=== PATIENT | male | born 1935 | race Caucasian/White ===

== ENCOUNTER → 2016-10-15 | Outpatient (CLI) | payer OTHER ==
[~2016-10-15] MED LIST: ASPIR LOW81 MG PO; BACLOFEN10 MG PO; DEXILANT60 M1 PO; HYDROCHLOROTH12.5 M2 PO; LAC PO; LOVASTATIN40 MG PO; LYRICA50 M1 PO; OXYBUTYNIN CHLOR5 MG PO
== END | disposition home or self-care (01) ==
LOC: RD 14:29
DX: R06.02 Shortness of breath (principal)

== ENCOUNTER 2016-11-21 06:09 | Day surgery (SDC) | payer OTHER ==
[~2016-11-21] VITALS: Ht 152.4 cm; Wt 104.3 kg
[2016-11-21 07:01] VITALS: BP 142/58
[2016-11-21 09:14] VITALS: BP 130/83
== END 2016-11-21 09:20 | disposition home or self-care (01) ==
LOC: DS 06:09 → GI 07:30 → OR 07:30 → DS 09:20
PROVIDERS: Internal Medicine
PROC: 0DJD8ZZ Inspection of Lower Intestinal Tract, Via Natural or Artificial Opening Endoscopic (ICD-10-PCS; principal; 2016-11-21 07:30)
DX: Z12.11 Encounter for screening for malignant neoplasm of colon (principal); K57.30 Diverticulosis of large intestine without perforation or abscess without bleeding; R15.9 Full incontinence of feces; J44.9 Chronic obstructive pulmonary disease, unspecified; E78.5 Hyperlipidemia, unspecified; E66.01 Morbid (severe) obesity due to excess calories; Z68.41 Body mass index [BMI] 40.0-44.9, adult
CPT/HCPCS: 45378; J1200; J1610; J2250; J2310; J3010; J3490

== ENCOUNTER → 2016-12-04 | Outpatient (CLI) | payer OTHER | END | disposition home or self-care (01) | LOC: RD 12:04 | DX: M79.672 Pain in left foot (principal) ==

== ENCOUNTER 2016-12-29 08:03 | Inpatient (IN) | payer OTHER ==
[~2016-12-29] VITALS: Ht 162.6 cm; Wt 101.2 kg
[2016-12-29 09:06] LABS: BASOPHIL % 0.6 % (0-2); RED CELL DISTRIBUTION WIDTH 13.5 % (11.5-14.5)
[2016-12-29 09:08] LABS: PLATELET COUNT 128 x10^3mcL (130-400)
[2016-12-29 09:18] LABS: CALCIUM 8.7 mg/dL (8.5-10.1); CARBON DIOXIDE 28.4 mmol/L (21-32); CHLORIDE SERUM 103 mmol/L (98-107); CREATININE SERUM 1.2 mg/dL (0.7-1.3); GLUCOSE SERUM 105 mg/dL (74-106); POTASSIUM SERUM 4.2 mmol/L (3.5-5.1); SODIUM SERUM 141 mmol/L (136-145)
[2016-12-29 09:31] LABS: ALBUMIN 3.4 g/dL (3.4-5.0); ALKALINE PHOSPHATASE 62 U/L (46-116); ALT/SGPT 30 U/L (16-63); AMYLASE 27 U/L (25-115); AST/SGOT 24 U/L (15-37); BILIRUBIN TOTAL 0.45 mg/dL (0.20-1.00); CHOLESTEROL 179 mg/dL (<200); LIPASE 49 IU/L (73-393); T4(THYROXINE) 7.7 ug/dL (4.7-13.3); TOTAL PROTEIN, SERUM 7.1 g/dL (6.4-8.2)
[2016-12-29 09:32] LABS: HDL CHOLESTEROL 73 mg/dL (40-60)
[2016-12-29] MEDS ORDERED: LASIX40 MG PO (10:04)
[2016-12-29] MEDS ORDERED: MECLIZINE HYDRO25 M1 PO (10:04)
[2016-12-29] MEDS ORDERED: KLOR-CON M2020 MEQ PO (10:04)
[2016-12-29] MEDS ORDERED: TAMSULOSIN HYD0.4 M1 PO (10:05)
[2016-12-29] MEDS ORDERED: ADVAIR INH (10:06)
[2016-12-29] MEDS ORDERED: [UNRECOGNIZED DRUG - REMARK] TOP (10:07)
[2016-12-29 12:56] VITALS: BP 131/72
[2016-12-29 13:46] LABS: microscopic required? NO
[2016-12-29 13:54] LABS: urine erythrocyte NEGATIVE (NEGATIVE)
[2016-12-29 14:02] LABS: AMPHETAMINE QUAL UR NONE DETECTED (NEG <=1000)
[2016-12-29 14:20] VITALS: BP 144/80
[2016-12-29 14:28] VITALS: BP 144/80
[2016-12-29 17:22] VITALS: BP 130/69
[2016-12-29 18:14] VITALS: BP 142/49
[2016-12-29 18:32] VITALS: Ht 162.6 cm; Wt 101.2 kg
[2016-12-29 20:21] VITALS: BP 134/68
[2016-12-30 06:13] VITALS: BP 130/71
[2016-12-30 06:22] LABS: PLATELET COUNT 139 x10^3mcL (130-400); RED CELL DISTRIBUTION WIDTH 13.6 % (11.5-14.5)
[2016-12-30 06:43] LABS: BASOPHIL % 0 % (0-2)
[2016-12-30 07:16] LABS: CALCIUM 8.7 mg/dL (8.5-10.1); CHLORIDE SERUM 103 mmol/L (98-107); CREATININE SERUM 1.2 mg/dL (0.7-1.3); GLUCOSE SERUM 163 mg/dL (74-106); POTASSIUM SERUM 4.3 mmol/L (3.5-5.1); SODIUM SERUM 137 mmol/L (136-145)
[2016-12-30 09:56] VITALS: BP 132/71
[2016-12-30 14:08] VITALS: BP 120/57
[2016-12-30 18:18] VITALS: BP 110/60
[2016-12-30 20:42] VITALS: BP 136/63
[2016-12-31 05:33] VITALS: BP 113/60
[2016-12-31 06:21] LABS: PLATELET COUNT 133 x10^3mcL (130-400); RED CELL DISTRIBUTION WIDTH 13.2 % (11.5-14.5)
[2016-12-31 06:26] LABS: CALCIUM 8.4 mg/dL (8.5-10.1); CARBON DIOXIDE 27.4 mmol/L (21-32); CHLORIDE SERUM 105 mmol/L (98-107); CREATININE SERUM 1.3 mg/dL (0.7-1.3); GLUCOSE SERUM 127 mg/dL (74-106); MAGNESIUM 2.1 mg/dL (1.8-2.4); PHOSPHOROUS 3.8 mg/dL (2.5-4.9); POTASSIUM SERUM 4.5 mmol/L (3.5-5.1); SODIUM SERUM 141 mmol/L (136-145)
[2016-12-31 07:10] LABS: BASOPHIL % 0 % (0-2)
[2016-12-31 10:14] VITALS: BP 117/57
[2016-12-31 13:24] VITALS: BP 109/53
[2016-12-31 14:45] VITALS: BP 109/53
[2016-12-31] MEDS ORDERED: LAC PO (14:57)
[2016-12-31] MEDS ORDERED: LEVAQUIN750 MG PO (14:57)
[2016-12-31] MEDS ORDERED: MEDDP PO (14:58)
[2016-12-31] MEDS ORDERED: IND25 PO (14:59)
[2016-12-31] MEDS ORDERED: ROBDML PO (14:59)
[2016-12-31] MEDS ORDERED: CLINDAMYCIN HC300 MG PO (15:00)
[2016-12-31 17:13] VITALS: BP 96/53
== END 2016-12-31 18:30 | disposition home or self-care (01) | DRG 193 ==
LOC: ED 08:03 → DU 10:40
PROVIDERS: Emergency Medicine; ADMIT Family Medicine
DX: R09.1 Pleurisy (principal); N17.0 Acute kidney failure with tubular necrosis; J44.1 Chronic obstructive pulmonary disease with (acute) exacerbation; D68.69 Other thrombophilia; E86.0 Dehydration; K21.9 Gastro-esophageal reflux disease without esophagitis; D69.6 Thrombocytopenia, unspecified; R73.03 Prediabetes; I73.9 Peripheral vascular disease, unspecified; I10 Essential (primary) hypertension; I25.10 Atherosclerotic heart disease of native coronary artery without angina pectoris; K42.9 Umbilical hernia without obstruction or gangrene; M10.9 Gout, unspecified; E78.5 Hyperlipidemia, unspecified; I25.2 Old myocardial infarction; E66.9 Obesity, unspecified; Z68.38 Body mass index [BMI] 38.0-38.9, adult; Z87.891 Personal history of nicotine dependence; Z85.46 Personal history of malignant neoplasm of prostate; Z92.3 Personal history of irradiation; Z66 Do not resuscitate
CPT/HCPCS: 36600; 82962; 83880; J1956; J2930; J3490; J7030; J7613; J7620; J7644; J8597; Q0092

== ENCOUNTER 2017-01-04 22:45 | Observation (INO) | payer OTHER ==
[~2017-01-04] VITALS: Ht 162.6 cm; Wt 103.2 kg
[~2017-01-04 22:45] MED LIST changes: +ADVAIR INH; +CLINDAMYCIN HC300 MG PO; +IND25 PO; +KLOR-CON M2020 MEQ PO; +LASIX40 MG PO; +LEVAQUIN750 MG PO; +MECLIZINE HYDRO25 M1 PO; +MEDDP PO; +ROBDML PO; +TAMSULOSIN HYD0.4 M1 PO; +[UNRECOGNIZED DRUG - REMARK] TOP
--- NOTE | 2017-01-04 22:53 | NUR ---
EKG IN PROGRESS
--- NOTE | 2017-01-04 23:00 | NUR ---
PATIENT SEEN WITH COMPLAINT OF SON , COUGH AND NAUSEA. DR ALBERTO AT THE BEDSIDE.PATIENT SEEN WITH GROSSLY DISTENDED ABDOMEN. FAMILY REPORTS PATIENT HAS A COUUGH AND BURNING ANDOMINAL PAIN WHEN COUGHING.
[2017-01-04 23:33] LABS: BASOPHIL % 0.4 % (0-2); PLATELET COUNT 175 x10^3mcL (130-400); RED CELL DISTRIBUTION WIDTH 13.1 % (11.5-14.5)
--- NOTE | 2017-01-04 23:34 | NUR ---
SALINE LOCK INSERTED. SALINE BOLUS STARTED. PATIENT MEDICATED WITH SOLUMEDROL AND ZOFRAN. PATIENT WENT TO HAVE CT SCAN ABDOMEN DONE.
[2017-01-04 23:45] LABS: CARBON DIOXIDE 31.8 mmol/L (21-32); CHLORIDE SERUM 96 mmol/L (98-107); CREATININE SERUM 1.6 mg/dL (0.7-1.3); GLUCOSE SERUM 132 mg/dL (74-106); POTASSIUM SERUM 3.3 mmol/L (3.5-5.1); SODIUM SERUM 137 mmol/L (136-145)
[2017-01-04 23:50] LABS: ALBUMIN 3.5 g/dL (3.4-5.0); ALKALINE PHOSPHATASE 60 U/L (46-116); ALT/SGPT 26 U/L (16-63); AMYLASE 28 U/L (25-115); AST/SGOT 13 U/L (15-37); BILIRUBIN TOTAL 0.6 mg/dL (0.20-1.00); LIPASE 56 IU/L (73-393); TOTAL PROTEIN, SERUM 7.2 g/dL (6.4-8.2)
--- NOTE | 2017-01-04 23:51 | NUR ---
PATIENT RETURN FROM ct AND WAS MEDICATED WITH MORPHINE IVP FOR PAIN AND TESSILON YASMIN PO FOR COUGH. RESPIRATORY CALL TO GIVE BREATHING TX.
--- NOTE | 2017-01-04 23:55 | NUR ---
RESPIRATORY AT THE BEDSIDE GIVING BREATHING TX.
--- NOTE | 2017-01-05 00:30 | NUR ---
BREATHING TREATMENT COMPLETED
--- NOTE | 2017-01-05 00:40 | NUR ---
PATIENT IS SLEEPING AT THIS TIME, NO DISTRESS.
--- NOTE | 2017-01-05 01:43 | NUR ---
RECEIVED REPROT FROM ALEX HERZOG TO SAKINA RIGGS EOF PT.
--- NOTE | 2017-01-05 01:52 | NUR ---
RESIDENT IS AT THE BEDSIDE. REPORT WAS GIVEN TO JUDIE. PATIENT WILL BE TRANSPORTED TO ROOM 257B.
[2017-01-05 02:17] VITALS: BP 136/70
--- NOTE | 2017-01-05 02:26 | NUR ---
RECEIVED PT FROM ED VIA [id number]. ORIENTED PT TO ROOM AND SURROUNDINGS. IV NOTED TO LAC PATENT ADN INTACT. TELE 17 PLACED ON PT READING NSR. INSTRUCTED PT ON THE USE OF CALL LIGHT FOR ASSISTANCE. ENDORSED PT TO PRIMARY NURSE JUDIE
[2017-01-05 02:27] LABS: T3 TOTAL 1.19 ng/mL
--- NOTE | 2017-01-05 02:30 | NUR ---
RECEIVED PT FROM ED, NO ACUTE DISTRESS. ORIENTED PT TO ROOM. WILL CONTINUE TO MONITOR.
[2017-01-05 02:35] LABS: PHOSPHOROUS 3.4 mg/dL (2.5-4.9)
[2017-01-05 02:45] VITALS: BP 136/70
[2017-01-05 02:46] LABS: FREE T4 1.26 ng/dL (0.76-1.46); FREE THYROXINE INDEX 3.5 ug/dL (1.4-4.5); T4(THYROXINE) 9.8 ug/dL (4.7-13.3)
[2017-01-05 02:50] LABS: CHOLESTEROL/HDL RATIO 2.4
[2017-01-05 03:48] LABS: microscopic required? NO
[2017-01-05 04:09] LABS: urine erythrocyte NEGATIVE (NEGATIVE)
[2017-01-05 06:04] VITALS: BP 139/75
--- NOTE | 2017-01-05 06:20 | NUR ---
PT SLEPT PERIODICALLY THROUGHOUT NIGHT, NO ACUTE DISTRESS. ALL NEEDS MET AND ATTENDED TO. NO SIGNIFICANT CHANGES. IV PATENT AND INTACT. BED IN LOWEST POSITION, SIDE RAILS UP X2, SCDS IN PLACE, CALL LIGHT WITHIN REACH. WILL ENDORSE CARE TO ONCOMING NURSE.
--- NOTE | 2017-01-05 07:15 | NUR ---
PT WAS ENDORSE TO ME THIS MORNING. PT SITTING UP IN SIDE OF BED. PT DENIES ANY SOB. NO RESP DISTRESS NOTED. PT BREATHING EVEN AND UNLABORED. PT ON 4L OF . IV TO THE LAC INFUSING AT 100ML/HR NS. NO REDNESS OR SWELLING NOTED. CALL LIGHT IN REACH. BED IN LOW POSITION. WILL CONINTUE PLAN OF CARE.
[2017-01-05 09:17] VITALS: BP 112/54
--- NOTE | 2017-01-05 11:00 | NUR ---
PT C/O HEADACH 03/17. MEDICATED WITH NROCO. WILL CONTINUE TO MONITOR PT PAIN AND DISCOMFORT.
--- NOTE | 2017-01-05 13:00 | NUR ---
PT IS SITTING UP IN BED WATCHING TV WITH DAUGHTER AT HIS SIDE. PT ATE MOST OF HIS LUNCH. PT STATED HIS PAIN FEELS MUCH BETTER. CALL LIGHT IN REACH. BED IN LOW POSITION. WILL CONTINUE PLAN OF CARE.
[2017-01-05 17:33] VITALS: BP 105/52
--- NOTE | 2017-01-05 19:31 | NUR ---
WILL ENDORSE PT TO INCOMING NURSE. PT DENIES PAIN AT THIS TIME. NO RESP DISTRESS, SOB OR CHEST PAIN NOTED. CALL LIGHT LIGHT IN REACH. BED IN LOW POSITION.
--- NOTE | 2017-01-05 20:35 | NUR ---
RECEIVED PT SITTING ON THE EDGE OF BED NO RESP DIATRESS NOTED, PT'S ON 2L N/C SAT 96, LUNG SOUNDS DIMINISHED . ABD SOFT BS ACTIVE, 2+PITTING EDEMA NOTED, BILAT LOWER EXTR . SKIN WARM TO TOUCH . PT'S ON TELE NUMBER 17 THAT SHOWS NSR HR 78. WILL CON;T TO MONITOR PT CLOSELY.
--- NOTE | 2017-01-05 20:45 | NUR ---
PATIENT'S PLAN OF CARE WAS DISCUSSED AND REVIEWED WITH CLIENT SERVICE MANAGER: GUERDA LACY I HAVE REVIEWED THE DATA COLLECTION BY CLIENT SERVICE MANAGER (NAME): GUERDA LACY ENTERED ON (DATE/TIME): 01/05/172034 I CONCUR WITH THE DATA AND ANY EXCEPTIONS OR COMMENTS ARE LISTED BELOW: AGREE WITH ASSESSMENTS.
[2017-01-05 20:51] VITALS: BP 116/59
--- NOTE | 2017-01-05 23:13 | NUR ---
POST ROBITUSSIN WITH CODEINE , PT'S IN BED WITH EYES CLOSED , NO RESP DISTRESS NOTED . TELE NSR , PIV INTACT INFUSING WELL.
[2017-01-06 05:45] VITALS: BP 110/54
--- NOTE | 2017-01-06 05:52 | NUR ---
NO CHANGES OF CONDITION NOTED, ALL DUE MEDS GIVEN NO REACTION NOTED, PT'S IN BED AWAKE WATCHING TV , PIV INTACT INFUSING WELL.
[2017-01-06 07:21] LABS: CALCIUM 8.4 mg/dL (8.5-10.1); CARBON DIOXIDE 27.6 mmol/L (21-32); CHLORIDE SERUM 102 mmol/L (98-107); CREATININE SERUM 1.2 mg/dL (0.7-1.3); GLUCOSE SERUM 149 mg/dL (74-106); MAGNESIUM 2.1 mg/dL (1.8-2.4); PHOSPHOROUS 3.5 mg/dL (2.5-4.9); POTASSIUM SERUM 3.7 mmol/L (3.5-5.1); SODIUM SERUM 138 mmol/L (136-145)
--- NOTE | 2017-01-06 07:22 | NUR ---
PT WAS ENDORSE TO ME THIS MORNING. PT SLEEPING, BREATHING EVEN AND UNLABORED.NO RESP DISTRES , SOB OR CHEST PAIN NOTED. IV INFUSING TO THE LFA AT 30 ML/HR NS. NO REDNESS OR SWELLING NOTED. CALL LIGHT IN REACH. BED IN LOW POSITION. WILL CONTINUE PLAN OF CARE.
--- NOTE | 2017-01-06 08:00 | NUR ---
DR. NICHOLSON AND TEAM MADE ROUNDS. PT PLAN FOR TODAY IS DISCHARGE AND HAVE THE PULMONARY DR. SEE PT BEFORE D/C. WILL CONTINUE PLAN OF CARE.
--- NOTE | 2017-01-06 08:18 | NUR ---
GAVE PT ALL MORNING MEDS. PT STATED HIS COUGH FEELS BETTER. REFUSE ANY MORE GUAIATUSSIN. WILL CONTINUE TO MONITOR PT COUGH. CALL LIGHT IN REACH. BED IN LOW POSITION.
[2017-01-06 09:16] VITALS: BP 96/56
--- NOTE | 2017-01-06 10:17 | NUR ---
PT IS SITTING UP IN BED WATCHING TV. GAVE PT ANUSHASIN-D AT 0917 FOR COUGH. PT STATED COUGH MED HELPED. CALL LIGHT IN REACH. BED IN LOW POSITION. WILL CONTINUE PLAN OF CARE.
--- NOTE | 2017-01-06 10:35 | NUR ---
ECHOCARDIOGRAM COMPLETED
--- NOTE | 2017-01-06 10:55 | NUR ---
CK PT O2 AT 10:40AM. PT DESATURATED TO 93 RA.
[2017-01-06] MEDS ORDERED: CIPRO500 MG PO (11:58)
[2017-01-06] MEDS ORDERED: PREDNISONE50 MG PO (11:59)
--- NOTE | 2017-01-06 12:13 | NUR ---
PT IS SITTING UP IN BED WATCHING TV. PT IS OFF 02 ON RA, IS TOLERATING RA WELL. PT DENIES ANY SOB OR DISCOMFORT AT THIS TIME. CALL LIGHT LIGHT IN REACH. BED IN LOW POSITION. WILL CONTINUE TO MONITOR PLAN OF CARE.
[2017-01-06 12:45] VITALS: BP 97/58
[2017-01-06 14:00] VITALS: BP 111/63
--- NOTE | 2017-01-06 17:52 | NUR ---
EXPLAINED TO PT ALL DISCHARGE INSTRUCTIONS, PT AGREED AND SIGNED ALL DOCUMENTS. D/C IV, NO REDNESS OR SWELLING NOTED. REMOVED TELE 17. PT DENIES ANY SOB OR CHEST DISCOMFORT AT THIS TIME. PT IS SITTING UP EATING DINNER AND WAITING FOR HIS SON TO ARRIVE. PT WILL CALL THE NURSING STATION WHEN HE IS READY TO LEAVE.
--- NOTE | 2017-01-06 18:16 | NUR ---
RN TEA WHEELED PT TO DISCHARGE LOBBY WHERE SON IS WAITING FOR HIM. PT A/O X4. PT DENIES ANY PAIN OR DISCOMFORT. NO CHEST PAIN OR RESP DISTRESS AND SOB NOTED.
== END 2017-01-06 18:20 | disposition home or self-care (01) | DRG 189 ==
LOC: ED 22:45 → DU 01-05 01:21
PROVIDERS: Emergency Medicine; Family Medicine; ADMIT Family Medicine
DX: J96.00 Acute respiratory failure, unspecified whether with hypoxia or hypercapnia (principal); N17.0 Acute kidney failure with tubular necrosis; J44.1 Chronic obstructive pulmonary disease with (acute) exacerbation; Q61.02 Congenital multiple renal cysts; R51 Headache; K21.9 Gastro-esophageal reflux disease without esophagitis; I73.9 Peripheral vascular disease, unspecified; R73.03 Prediabetes; E87.6 Hypokalemia; E78.5 Hyperlipidemia, unspecified; M10.9 Gout, unspecified; E66.9 Obesity, unspecified; Z68.39 Body mass index [BMI] 39.0-39.9, adult; Z85.46 Personal history of malignant neoplasm of prostate; Z92.3 Personal history of irradiation
CPT/HCPCS: 82962; 83880; 84439; 94150; G0378; J1644; J2270; J2405; J2920; J2930; J7030; J7613; J7620; J7626; J7644; Q0092

== ENCOUNTER 2017-01-26 08:17 | Observation (INO) | payer OTHER ==
[~2017-01-26] VITALS: Ht 154.9 cm; Wt 102.1 kg
[~2017-01-26 08:17] MED LIST changes: +CIPRO500 MG PO; +PREDNISONE50 MG PO
[2017-01-26 09:12] LABS: BASOPHIL % 0.4 % (0-2); PLATELET COUNT 184 x10^3mcL (130-400); RED CELL DISTRIBUTION WIDTH 13.4 % (11.5-14.5)
[2017-01-26 09:26] LABS: CALCIUM 8.8 mg/dL (8.5-10.1); CARBON DIOXIDE 28.8 mmol/L (21-32); CHLORIDE SERUM 99 mmol/L (98-107); CREATININE SERUM 1.4 mg/dL (0.7-1.3); GLUCOSE SERUM 135 mg/dL (74-106); POTASSIUM SERUM 3.1 mmol/L (3.5-5.1); SODIUM SERUM 137 mmol/L (136-145)
[2017-01-26 09:33] LABS: ALKALINE PHOSPHATASE 75 U/L (46-116); ALT/SGPT 22 U/L (16-63); AST/SGOT 26 U/L (15-37); BILIRUBIN TOTAL 0.57 mg/dL (0.20-1.00); LIPASE 51 IU/L (73-393); T4(THYROXINE) 6.7 ug/dL (4.7-13.3); TOTAL PROTEIN, SERUM 7.2 g/dL (6.4-8.2)
[2017-01-26 09:34] LABS: ALBUMIN 2.9 g/dL (3.4-5.0); AMYLASE 19 U/L (25-115); CHOLESTEROL 231 mg/dL (<200); HDL CHOLESTEROL 92 mg/dL (40-60)
[2017-01-26 11:44] LABS: UA SPECIFIC GRAVITY <=1.005 (1.005-1.035); microscopic required? YES; urine erythrocyte TRACE (NEGATIVE)
[2017-01-26 11:50] LABS: AMPHETAMINE QUAL UR NONE DETECTED (NEG <=1000)
[2017-01-26 12:16] VITALS: BP 107/61
[2017-01-26 13:05] LABS: PHOSPHOROUS 2.7 mg/dL (2.5-4.9)
[2017-01-26 13:06] LABS: CHOLESTEROL/HDL RATIO 2.4
[2017-01-26 13:11] LABS: T3 TOTAL 1.05 ng/mL
[2017-01-26 13:14] LABS: FREE T4 0.93 ng/dL (0.76-1.46); FREE THYROXINE INDEX 2.3 ug/dL (1.4-4.5); T4(THYROXINE) 6.8 ug/dL (4.7-13.3)
[2017-01-26 14:05] VITALS: BP 107/61
[2017-01-26 14:15] VITALS: Ht 154.9 cm; Wt 102.1 kg
[2017-01-26 17:22] VITALS: BP 103/60
[2017-01-26 20:56] VITALS: BP 99/50
[2017-01-27 05:42] VITALS: BP 98/49
[2017-01-27 06:46] LABS: PLATELET COUNT 183 x10^3mcL (130-400); RED CELL DISTRIBUTION WIDTH 13.3 % (11.5-14.5)
[2017-01-27 06:52] LABS: BASOPHIL % 0 % (0-2)
[2017-01-27 06:55] LABS: CALCIUM 8.8 mg/dL (8.5-10.1); CARBON DIOXIDE 26.9 mmol/L (21-32); CHLORIDE SERUM 102 mmol/L (98-107); CREATININE SERUM 1.4 mg/dL (0.7-1.3); GLUCOSE SERUM 201 mg/dL (74-106); MAGNESIUM 2.3 mg/dL (1.8-2.4); POTASSIUM SERUM 3.8 mmol/L (3.5-5.1); SODIUM SERUM 139 mmol/L (136-145)
[2017-01-27 10:14] VITALS: BP 116/55
[2017-01-27] MEDS ORDERED: [UNRECOGNIZED DRUG - OTHER] INH (10:25)
[2017-01-27] MEDS ORDERED: IPRATROPIUM BROM3 M2 HHN (12:54)
[2017-01-27 14:35] VITALS: BP 99/47
[2017-01-27 16:00] VITALS: BP 102/60
== END 2017-01-27 16:43 | disposition home or self-care (01) | DRG 190 ==
LOC: ED 08:17 → DU 10:41
PROVIDERS: Emergency Medicine; ADMIT Family Medicine
DX: J44.1 Chronic obstructive pulmonary disease with (acute) exacerbation (principal); J96.21 Acute and chronic respiratory failure with hypoxia; N17.0 Acute kidney failure with tubular necrosis; C79.82 Secondary malignant neoplasm of genital organs; E44.0 Moderate protein-calorie malnutrition; Z68.41 Body mass index [BMI] 40.0-44.9, adult; C80.1 Malignant (primary) neoplasm, unspecified; E87.6 Hypokalemia; I11.9 Hypertensive heart disease without heart failure; E78.5 Hyperlipidemia, unspecified; M10.9 Gout, unspecified; M17.0 Bilateral primary osteoarthritis of knee; M51.26 Other intervertebral disc displacement, lumbar region; E66.01 Morbid (severe) obesity due to excess calories; Z99.81 Dependence on supplemental oxygen
CPT/HCPCS: 36600; 82962; 83880; 84439; 97110-GP; G0378; J1956; J2930; J7030; J7613; J7620; J7626; J7644; Q0092

== ENCOUNTER → 2017-05-15 | Outpatient (CLI) | payer OTHER ==
[~2017-05-15] MED LIST changes: +IPRATROPIUM BROM3 M2 HHN; +[UNRECOGNIZED DRUG - OTHER] INH
== END | disposition home or self-care (01) ==
LOC: RD 11:02
DX: J44.9 Chronic obstructive pulmonary disease, unspecified (principal)

== ENCOUNTER 2018-05-27 13:20 | Emergency (ER) | payer OTHER ==
[~2018-05-27] VITALS: Ht 165.1 cm; Wt 103.9 kg
[2018-05-27 13:33] VITALS: Ht 165.1 cm; Wt 103.9 kg
[2018-05-27 13:46] VITALS: BP 155/76
[2018-05-27 14:20] LABS: CALCIUM 8.7 mg/dL (8.5-10.1); CARBON DIOXIDE 27.7 mmol/L (21-32); CHLORIDE SERUM 103 mmol/L (98-107); CREATININE SERUM 1.4 mg/dL (0.7-1.3); GLUCOSE SERUM 102 mg/dL (74-106); POTASSIUM SERUM 4.3 mmol/L (3.5-5.1); SODIUM SERUM 137 mmol/L (136-145)
[2018-05-27 14:21] LABS: BASOPHIL % 0.5 % (0-2); PLATELET COUNT 141 x10^3mcL (130-400); RED CELL DISTRIBUTION WIDTH 13.5 % (11.5-14.5)
[2018-05-27 14:26] LABS: ALKALINE PHOSPHATASE 57 U/L (46-116); ALT/SGPT 23 U/L (16-63); AMYLASE 36 U/L (25-115); AST/SGOT 17 U/L (15-37); BILIRUBIN TOTAL 0.3 mg/dL (0.20-1.00); LIPASE 53 IU/L (73-393); TOTAL PROTEIN, SERUM 7.1 g/dL (6.4-8.2)
[2018-05-27 14:31] LABS: ALBUMIN 3.3 g/dL (3.4-5.0)
[2018-05-27 16:20] LABS: UA SPECIFIC GRAVITY 1.025 (1.005-1.035); microscopic required? YES; urine erythrocyte 1+ (NEGATIVE)
== END 2018-05-27 17:52 | disposition home or self-care (01) ==
LOC: ED 13:20
PROVIDERS: Emergency Medicine
DX: M54.9 Dorsalgia, unspecified (principal); I10 Essential (primary) hypertension; M48.00 Spinal stenosis, site unspecified; E66.01 Morbid (severe) obesity due to excess calories; J44.9 Chronic obstructive pulmonary disease, unspecified; E78.00 Pure hypercholesterolemia, unspecified; M51.36 Other intervertebral disc degeneration, lumbar region; Z86.79 Personal history of other diseases of the circulatory system; Z68.38 Body mass index [BMI] 38.0-38.9, adult
CPT/HCPCS: J1885; J7030

== ENCOUNTER 2018-09-07 15:35 | Inpatient (IN) | payer OTHER ==
[~2018-09-07] VITALS: Ht 165.1 cm; Wt 104.3 kg
[2018-09-07 15:48] VITALS: Ht 165.1 cm; Wt 104.3 kg
--- NOTE | 2018-09-07 16:04 | NUR ---
PT PRESENTS TO THE ED WITH SON AT BEDSIDE WITH C/C OF COUGH X 1 WEEK WORSNING OVER PAST 2 DAYS & NEW ONSET OF C/P & SOB. PT VEBRLAIZED HX OF SMOKING 4 PACKS A DAY AND WAS PREVIOUSLY DX WITH EMPHYSEMA. PT IS ALERT AND ORINENTED AND SPEAKS IN CLEAR SENTENCES. MOOD IS GOOD AND LAUGHS WITH SON. NAD RESPIRATIONS E/U. PT VEBRALIZED PAIN 8/10. PT PLACED ON AGRICULTURE RESEARCH DIRECTOR, PULSE OX AND OXYGEN DUE TO LOW SATURATION. DR BUCHANAN NOTIFIED. WILL CONTINUE TO MONITOR UNTILL MSE
--- NOTE | 2018-09-07 16:39 | NUR ---
NITRO APPLIED TO L SD CHEST WALL PER ORDER BP 131/70. NAD RESPIRATIONS E/U
--- NOTE | 2018-09-07 16:54 | NUR ---
IV STARTED AND LABS DRAWN
[2018-09-07 16:58] LABS: BASOPHIL % 0.5 % (0-2); RED CELL DISTRIBUTION WIDTH 13.4 % (11.5-14.5)
[2018-09-07 17:00] LABS: PLATELET COUNT 107 x10^3mcL (130-400)
[2018-09-07 17:08] LABS: CALCIUM 8.2 mg/dL (8.5-10.1); CARBON DIOXIDE 30.3 mmol/L (21-32); CHLORIDE SERUM 98 mmol/L (98-107); CREATININE SERUM 1.5 mg/dL (0.7-1.3); GLUCOSE SERUM 101 mg/dL (74-106); POTASSIUM SERUM 3.7 mmol/L (3.5-5.1); SODIUM SERUM 138 mmol/L (136-145)
[2018-09-07 17:12] LABS: ALBUMIN 3.4 g/dL (3.4-5.0); ALKALINE PHOSPHATASE 47 U/L (46-116); ALT/SGPT 34 U/L (16-63); AST/SGOT 35 U/L (15-37); TOTAL PROTEIN, SERUM 7.5 g/dL (6.4-8.2)
--- NOTE | 2018-09-07 17:43 | NUR ---
PT WAS POSITIONED COMORTABLY IN UPRIGHT POSTION. R/T AT BEDSIDE FOR BREATHING TREATMENT. MEDICTIONS GIVEN ORDERED
[2018-09-07] MEDS ORDERED: EPZICOM1 TAB (18:29)
[2018-09-07] MEDS ORDERED: POTASSIUM CHLO20 ME1 PO (18:29)
[2018-09-07] MEDS ORDERED: LOVASTATIN40 MG PO (18:29)
[2018-09-07 19:35] LABS: MAGNESIUM 2.3 mg/dL (1.8-2.4); PHOSPHOROUS 3.5 mg/dL (2.5-4.9)
[2018-09-07 19:38] LABS: CHOLESTEROL/HDL RATIO 2.6
[2018-09-07 19:39] LABS: T3 TOTAL 0.77 ng/mL
[2018-09-07 19:48] LABS: FREE T4 0.81 ng/dL (0.76-1.46); FREE THYROXINE INDEX 2.5 ug/dL (1.4-4.5)
--- NOTE | 2018-09-07 20:05 | NUR ---
RECEIVED PT VIA [employer] FROM E/D, ACCOMPANIED BY RN, TRANSPORTER, AND PT'S SON, HAI VERMA. PT A/A/O X 4, CALM, COOPERATIVE. PT W/ GENERALIZED WEAKNESS, BUT ABLE TO AMBULATE WITH ASSISTANCE FROM GUERNEY TO BED 1-PERSON ASSIST, WITH SLOW, STEADY GAIT. PT SPEAKS FARSI AND PORTUGUESE. ON TELE # 24, NSR, HR 80, HAS C/P 2/2 COUGHING BUT DENIES PAIN OR DISCOMFORT AT THIS TIME. BUL/BLL CLEAR, SHALLOW-BREATHING, CHEST RISING EVENLY, 4LNC, 93%, HAS PRODUCTIVE COUGH WITH SMALL AMOUNT OF CLEAR SPUTUM. ABD FIRM, DISTENDED, HYPERACTIVE BOWEL SOUNDS X 4 QUADS, LAST BM 09/07/18, FORMED. IV SITE LFA 20G, CDI. ORIENTED PT AND SON TO ROOM, BED CONTROLS, CALL LIGHT SYSTEM. SIDE RAILS UP X 2, BED IN LOW POSITION. WILL ENDORSE TO MINO SILVA.
[2018-09-07 20:36] VITALS: BP 106/58
[2018-09-07 20:57] VITALS: BP 106/58
--- NOTE | 2018-09-08 03:00 | NUR ---
PT SLEEPING AT THIS TIME. NO DISTRESS NOTED. SAFETY MEASURES IN PLACE. CALL LIGHT WITHIN REACH. WILL CONTINUE TO MONITOR.
--- NOTE | 2018-09-08 04:01 | NUR ---
ROBITUSSIN WITH CODEINE GIVEN FOR COUGH.
[2018-09-08 06:27] LABS: BASOPHIL % 0.1 % (0-2); RED CELL DISTRIBUTION WIDTH 13.4 % (11.5-14.5)
[2018-09-08 06:32] VITALS: BP 100/54
[2018-09-08 06:56] LABS: PLATELET COUNT 110 x10^3mcL (130-400)
--- NOTE | 2018-09-08 07:20 | NUR ---
RECEIVED PT RESTING IN BED. NO ACUTE DISTRESS. BREATHING EVEN AND UNLABORED ON RA. NO PAIN NOTED. IV TO LFA, NO REDNESS OR SWELLING TO IV SITE. ABDOMEN DISTENDED. FALL PRECAUTIONS IN PLACE. BED IN LOW POSITION, CALL LIGHT WITHIN REACH. WILL CONTINUE TO MONITOR.
--- NOTE | 2018-09-08 07:33 | NUR ---
PT SLEPT IN INTERVALS DURING SHIFT. NO SOB ON O2 2L VIA NC. NO C/O PAIN. NO DISTRESS NOTED. SAFETY MEASURES MAINTAINED. CALL LIGHT WITHIN REACH. ENDORSED CONTINUITY OF CARE TO ONCOMING RN.
[2018-09-08 08:05] VITALS: BP 113/55
[2018-09-08 08:33] LABS: CALCIUM 7.9 mg/dL (8.5-10.1); CARBON DIOXIDE 28.3 mmol/L (21-32); CHLORIDE SERUM 98 mmol/L (98-107); CREATININE SERUM 1.4 mg/dL (0.7-1.3); GLUCOSE SERUM 152 mg/dL (74-106); SODIUM SERUM 137 mmol/L (136-145)
[2018-09-08 08:39] LABS: UA SPECIFIC GRAVITY >=1.030 (1.005-1.035); microscopic required? YES; urine erythrocyte TRACE (NEGATIVE)
--- NOTE | 2018-09-08 09:57 | NUR ---
ECHOCARDIOGRAM PENDING-ECHO DONE 3 MONTHS AGO-DOES NOT REMEMBER DOCTOR'S NAME-ECHO DONE HERE 01/2017-COPY IN CHART
--- NOTE | 2018-09-08 13:02 | NUR ---
PT POSITIVE FOR INFLUENZA A. DR. LUCAS NOTIFIED. PT WILL BE MOVED TO ROOM 201A, DROPLET PRECAUTIONS ENFORCED. WILL CONTINUE TO MONITOR.
[2018-09-08 15:28] VITALS: BP 99/59
--- NOTE | 2018-09-08 16:25 | NUR ---
PT RESTING IN BED WATCHING TV. NO ACUTE DISTRESS. RESP EVEN AND UNLABORED ON 2L NC. NO C/O PAIN. PRODUCTIVE COUGH. IVF INFUSING, NO REDNESS OR SWELLING NOTED. HOB ELEVATED. CALL LIGHT WITHIN REACH. WILL CONTINUE TO MONITOR.
--- NOTE | 2018-09-08 19:27 | NUR ---
PT SEEN, SITTING UP AT EDGE OF BED, ALERT AND ORIENTED, DENIES HEADACHE OR DIZZINESS, MOSTLY ROMANSH SPEAKING ONLY, BREATHING EVEN AND UNLABORED WHILE RESTING IN BED, LUNG SOUNDS CLEAR BUT DIMINISHED AT BASE, ON O2 2L VIA NC, SOB ON EXERTION, ON TELE#24 NSR, DENIES CHEST PAIN, PULSES PALPABLE, NO EDEMA NOTED, MILD GENERALIZED WEAKNESS, ABD FIRM AND DISTENDED WITH ACTIVE BS, NO BM AT THIS TIME, DENIES ABD PAIN, VOIDING FREELY, NO DISTRESS NOTED, WILL KEEP TO MONITOR.
[2018-09-08 20:47] VITALS: BP 106/54
--- NOTE | 2018-09-09 05:56 | NUR ---
PT ASLEEP BUT EASILY AROUSABLE, SLEPT MOST OF NIGHT, BREATHING EVEN AND UNLABORED ON O2 2L VIA NC WITH NO RESP DISTRESS NOTED, IVF INFUSING WELL, REMAINS ON DROPLET ISOLATION, NO DISTRESS NOTED, WILL KEEP TO MONITOR.
[2018-09-09 06:10] VITALS: BP 98/49
[2018-09-09 07:11] LABS: CALCIUM 8.2 mg/dL (8.5-10.1); CARBON DIOXIDE 29.2 mmol/L (21-32); CHLORIDE SERUM 99 mmol/L (98-107); CREATININE SERUM 1.3 mg/dL (0.7-1.3); GLUCOSE SERUM 144 mg/dL (74-106); POTASSIUM SERUM 4.1 mmol/L (3.5-5.1); SODIUM SERUM 137 mmol/L (136-145)
--- NOTE | 2018-09-09 07:20 | NUR ---
RECEIVED PT RESTING IN BED. NO ACUTE DISTRESS. SLEEPING BUT AROUSABLE. RESP EVEN AND UNLABORED ON 2L NC. ABD DROPLET ISOLATION. IVF INFUSING, NO REDNESS OR SWELLING. FALL PRECAUTIONS. BED IN LOW POSITION, CALL LIGHT WITHIN REACH. WILL CONTINUE TO MONITOR.
[2018-09-09 08:08] LABS: RED CELL DISTRIBUTION WIDTH 13.4 % (11.5-14.5)
[2018-09-09 08:17] LABS: PLATELET COUNT 114 x10^3mcL (130-400)
--- NOTE | 2018-09-09 08:26 | NUR ---
DR. LUCAS NOTIFIED OF WBC 2.3. NO NEW ORDERS. WILL CONTINUE TO MONITOR.
[2018-09-09 09:25] VITALS: BP 108/53
[2018-09-09 09:27] LABS: ATYPICAL LYMPH 1 %; BAND NEUTROPHIL 0 % (0-10); BASOPHIL 0 % (0-2); MONOCYTE 19 % (0-7); SEGMENTED NEUTROPHILS 62 % (37-75)
[2018-09-09 09:28] LABS: PLATELET MORPHOLOGY PLATELETS DECREASED; rbc morphology (normal/abnorm) ABNORMAL (NORMAL)
--- NOTE | 2018-09-09 09:39 | NUR ---
PT C/O LEAKING TO IV SITE, IV DC'D WITH CATHETER INTACT. NEW IV STARTED ON LFA 22G, FLUSHED WITH 10 ML NS AND WITH GOOD BLOOD RETURN.
--- NOTE | 2018-09-09 11:57 | NUR ---
PT SITTING UP ON THE SIDE OF THE BED. NO ACUTE DISTRESS. RESP EVEN AND UNLABORED ON 2L NC. NO C/O PAIN. DROPLET PRECAUTIONS. CALL LIGHT WITHIN REACH. WILL CONTINUE TO MONITOR.
[2018-09-09 13:21] VITALS: BP 101/54
[2018-09-09 16:56] VITALS: BP 112/58
--- NOTE | 2018-09-09 17:06 | NUR ---
PT RESTING IN BED WATCHING TV. NO ACUTE DISTRESS. BREATHING EVEN AND UNLABORED ON 2L NC. RT PROTOCOL. IVF INFUSING, NO REDNESS OR SWELLING TO IV SITE. CALL LIGHT WITHIN REACH. WILL CONTINUE TO MONITOR.
--- NOTE | 2018-09-09 18:23 | NUR ---
PT RESTING IN BED. NO ACUTE DISTRESS. RESP EVEN AND UNLABORED ON 2L NC. SLEEPING BUT EASILY AROUSABLE. NO PAIN NOTED. IVF INFUSING, NO REDNESS OR SWELLING. DROPLET ISOLATION. BED IN LOW POSITION, CALL LIGHT WITHIN REACH. WILL ENDORSE TO ONCOMING SHIFT.
--- NOTE | 2018-09-09 19:00 | NUR ---
RECEIVED PT SITTING AT THE EDGE OF THE BED.BREATHING EVEN AND UNLABORED.DENIES ANY PAIN AT THIS TIME.IV SITE PATENT AND INTACT.BED IN LOWEST POSITION,CALL LIGHT WITHIN REACH. WILL CONTINUE TO MONITOR.
[2018-09-09 20:46] VITALS: BP 104/50
--- NOTE | 2018-09-10 03:31 | NUR ---
ASLEEP, EASILY AROUSABLE. NO ACUTE DISTRESS NOTED. WILL CONTINUE TO MONITOR.
--- NOTE | 2018-09-10 05:02 | NUR ---
PT REMAIND ASLEEP. NO DISTRESS NOTED.NO S/S OF PAIN.BED IN LOWEST POSITION,CALL LIGHT WITHIN REACH. WILL CONTINUE TO MONITOR.
[2018-09-10 05:53] VITALS: BP 96/48
[2018-09-10 06:19] LABS: CALCIUM 8.2 mg/dL (8.5-10.1); CARBON DIOXIDE 30.6 mmol/L (21-32); CHLORIDE SERUM 104 mmol/L (98-107); CREATININE SERUM 1.2 mg/dL (0.7-1.3); GLUCOSE SERUM 140 mg/dL (74-106); MAGNESIUM 2.3 mg/dL (1.8-2.4); PHOSPHOROUS 3.4 mg/dL (2.5-4.9); POTASSIUM SERUM 4.7 mmol/L (3.5-5.1); SODIUM SERUM 139 mmol/L (136-145)
[2018-09-10 06:46] LABS: BASOPHIL % 0.2 % (0-2); RED CELL DISTRIBUTION WIDTH 13.1 % (11.5-14.5)
[2018-09-10 06:47] LABS: PLATELET COUNT 113 x10^3mcL (130-400)
--- NOTE | 2018-09-10 07:29 | NUR ---
CARE ENDORSED TO DAY NURSE NELSON.
--- NOTE | 2018-09-10 07:50 | NUR ---
RECEIVED PATIENT RESTING IN BED, PATIENT APPEARED CONGESTED WITH NON PRODUCTIVE COUGH. RT NOTIFIED FOR BREATHING TREATMENT. PATIENT DENIES SOB, PATIENT ON 2L NC. TELE MONITOR IN PLACE, PATIENT DENIES CHEST PAIN. GENERALIZED WEAKNESS NOTED, AMBULATES WITH ASSIST. PATIENT DENIES PAIN AT THIS TIME. NS IV INFUSING TO LFA AT 70ML/HR, IV SITE PATENT, NO REDNESS, SWELLING OR PAIN NOTED. CALL LIGHT WITHIN REACH, BED IN LOW POSITION FOR SAFETY. WILL CONTINUE TO MONITOR FOR CHANGES.
[2018-09-10 08:25] VITALS: BP 111/52
--- NOTE | 2018-09-10 10:44 | NUR ---
ECHOCARDIOGRAM STILL PENDING-NURSE/PAO AWARE
--- NOTE | 2018-09-10 11:00 | NUR ---
CANCELLATION REQUESTED FOR ECHO. DONE 3 MONTHS AGO AT 'S OFFICE. VERBAL ORDER ENGINE EMISSION TECHNICIAN CONY GAY.
[2018-09-10 12:23] VITALS: BP 121/58
[2018-09-10 17:00] VITALS: BP 115/54
--- NOTE | 2018-09-10 17:24 | NUR ---
DR MARTINEZ TELEPHONE ORDER/ READBACK TO D/C NS AT 70ML/HR, PATIENT DOES NOT NEED FLUIDS. WILL CARRY OUT ORDERS AT THIS TIME. PATIENT IS ABLE TO BE D/C HOME, WILL NEED TO FOLOW UP WITH CROWN WHEEL ASSEMBLER PATIENT DOES LIVE HOME ALONE. WILL CONTINUE TO MONITOR PATIENT.
--- NOTE | 2018-09-10 18:14 | NUR ---
PATIENT IS SITTING UP AT BEDSIDE, EATING DINNER. NO SOB NOTED AT THIS TIME, PATIENT ON 2L NC. TELE MONITOR IN PLACE. DENIES PAIN AT THIS TIME. IV TO LFA SALINE LOCK, IV SITE CDI, NO REDNESS, SWELLING OR PAIN AT THIS SITE. CALL LIGHT WITHIN REACH, BED IN LOW POSITION, SIDE RAILSX 2 FOR SAFETY PRECAUTIONS. WILL ENDORSE REPORT TO NIGHT NURSE.
--- NOTE | 2018-09-10 19:30 | NUR ---
RECEIVED REPORT FROM DAY SHIFT RN. PT RESTING IN BED COMFORTABLY. NO SOB ON O2 2L VIA NC. NO C/O PAIN. NO DISTRESS NOTED. IV TO LFA, INTACT. ON DROPLET PRECAUTION. SAFETY MEASURES IN PLACE. BED IN LOWEST POSITION. SIDE RAILS UP X2. INSTRUCTED PT TO USE THE CALL LIGHT FOR ASSISTANCE. CALL LIGHT WITHIN REACH.
[2018-09-10 20:43] VITALS: BP 107/62
--- NOTE | 2018-09-11 02:59 | NUR ---
ROBITUSSIN WITH CODEINE GIVEN FOR COUGH.
--- NOTE | 2018-09-11 03:37 | NUR ---
PT SLEEPING AT THIS TIME. NO SOB ON O2 2L VIA NC. NO FACIAL GRIMACING. NO DISTRESS NOTED. CALL LIGHT WITHIN REACH. SAFETY MEASURES IN PLACE. WILL CONTINUE TO MONITOR.
[2018-09-11 04:53] VITALS: BP 97/50
--- NOTE | 2018-09-11 05:50 | NUR ---
PT SLEPT AT LONG INTERVALS THROUGHOUT SHIFT. NO SOB ON O2 2L VIA NC. NO C/O PAIN. NO DISTRESS NOTED. SAFETY MEASURES MAINTAINED. CALL LIGHT WITHIN REACH. WILL ENDORSE CONTINUITY OF CARE TO ONCOMING RN.
--- NOTE | 2018-09-11 07:36 | NUR ---
RECEIVED PATIENT RESTING IN BED, DENIES PAIN AT THIS TIME. NO SOB NOTED, PT ON 2L NC. TELE MONITOR IN PLACE. IV TO LFA SALINE LOCK, IV SITE CDI AND PATENT, NO REDNESS,SWELLING OR PAIN NOTED AT SITE. ISOLATION PRECAUTION IN PLACE FOR DROPLETS. INSTRUCTED PATIENT TO CALL FOR ASSISTANCE WHEN NEEDED, CALL LIGHT WITHIN REACH, BED IN LOW POSITION, SIDE RAILS X2 FOR SAFETY PRECAUTIONS. WILL CONTINUE TO MONITOR FOR CHANGES.
[2018-09-11] MEDS ORDERED: PREDNISONE20 MG PO (08:27)
[2018-09-11] MEDS ORDERED: TAM75 PO (08:28)
[2018-09-11] MEDS ORDERED: ZITHROMAX TRI-500 MG PO (08:28)
[2018-09-11 08:53] VITALS: BP 107/53
[2018-09-11 13:36] VITALS: BP 118/61
[2018-09-11 14:32] VITALS: BP 118/61
--- NOTE | 2018-09-11 15:35 | NUR ---
PATIENT SITTING UP AT BEDSIDE, DENIES SOB, PT ON ROOM AIR. PATIENT DENIES PAIN AT THIS TIME. NO ACUTES CHANGES THROUGH OUT SHIFT, PATIENT IS STABLE. PATIENT RECEIVED COPY OF DISCHARGE INSTRUCTIONS AND DISCHARGE PRESCRIPTIONS, PATIENT UNDERSTANDS AND AGREES WITH DISCHARGE PLAN AND INSTRUCTIONS, INCLUDING MEDICATIONS AND FOLLOW UP CARE. IV TO LFA REMOVED, CATH INTACT. TELE MONITOR AND ARMBANDS REMOVED. PATIENT WAS TAKEN DOWN VIA WHEELCHAIR BY EDIPHONE OPERATOR FOR SAFETY PRECAUTION.
== END 2018-09-11 15:35 | disposition home or self-care (01) | DRG 871 ==
LOC: ED 15:35 → DU 18:44
PROVIDERS: Emergency Medicine; Internal Medicine; ADMIT General Practice
DX: A41.9 Sepsis, unspecified organism (principal); N17.0 Acute kidney failure with tubular necrosis; J96.01 Acute respiratory failure with hypoxia; J44.1 Chronic obstructive pulmonary disease with (acute) exacerbation; J09.X2 Influenza due to identified novel influenza A virus with other respiratory manifestations; M94.0 Chondrocostal junction syndrome [Tietze]; K21.9 Gastro-esophageal reflux disease without esophagitis; M17.0 Bilateral primary osteoarthritis of knee; E78.5 Hyperlipidemia, unspecified; I10 Essential (primary) hypertension; I25.2 Old myocardial infarction; E66.9 Obesity, unspecified; Z68.38 Body mass index [BMI] 38.0-38.9, adult; Z87.891 Personal history of nicotine dependence; Z85.46 Personal history of malignant neoplasm of prostate; Z79.82 Long term (current) use of aspirin
CPT/HCPCS: 83880; 84439; 85378; 87804; J1644; J1956; J2920; J7030; J7050; J7512; J7620; J7626; Q0092

== ENCOUNTER 2018-09-14 21:42 | Inpatient (IN) | payer OTHER ==
[~2018-09-14] VITALS: Ht 162.6 cm; Wt 104.5 kg
[~2018-09-14 21:42] MED LIST changes: +EPZICOM1 TAB; +POTASSIUM CHLO20 ME1 PO; +PREDNISONE20 MG PO; +TAM75 PO; +ZITHROMAX TRI-500 MG PO
[2018-09-14 21:50] VITALS: Ht 162.6 cm; Wt 104.5 kg
--- NOTE | 2018-09-14 21:55 | NUR ---
PT BROUGHT IN BY AMBULANCE WITH C/O COUGH AND SOB. PER MEDICS, PT WAS DISCHARGE FROM HOSPITAL X2 DAYS AGO AFTER BEING ADMITTED FOR THE FLU. PT CONTINUES TO EXPERIENCE A PRODUCTIVE COUGH THAT MAKES HIM SOB. MEDICS ADMINISTERED DUONEB TREATMENT EN ROUTE AND PT STATES IT MADE BREATHING "A LITTLE EASIER". PT NOTED WITH CLEAR LUNG SOUNDS BILATERALLY. PT STATES TO CHEST PAIN WITH COUGHING. PT AOX4, RESP EVEN AND UNLABORED, NO ACUTE DISTRESS NOTED.
--- NOTE | 2018-09-14 22:45 | NUR ---
PT RESTING IN A POSITION OF COMFORT, FAMILY AT BEDSIDE AT THIS TIME.
[2018-09-14 22:58] LABS: BASOPHIL % 0.1 % (0-2); PLATELET COUNT 178 x10^3mcL (130-400); RED CELL DISTRIBUTION WIDTH 13.5 % (11.5-14.5)
[2018-09-14 23:16] LABS: ALKALINE PHOSPHATASE 43 U/L (46-116); ALT/SGPT 48 U/L (16-63); AST/SGOT 21 U/L (15-37); BILIRUBIN TOTAL 0.2 mg/dL (0.20-1.00); CALCIUM 8.4 mg/dL (8.5-10.1); CARBON DIOXIDE 25.1 mmol/L (21-32); CHLORIDE SERUM 105 mmol/L (98-107); GLUCOSE SERUM 114 mg/dL (74-106); POTASSIUM SERUM 4.3 mmol/L (3.5-5.1); SODIUM SERUM 139 mmol/L (136-145); TOTAL PROTEIN, SERUM 6.5 g/dL (6.4-8.2)
[2018-09-14 23:17] LABS: ALBUMIN 2.7 g/dL (3.4-5.0)
[2018-09-15] VITALS (7 sets, daily range): BP systolic 117–147; BP diastolic 58–74
--- NOTE | 2018-09-15 00:30 | NUR ---
PT NOTED WITH O2 SAT OF 90% FROM NURSE'S STATION, PT PLACED ON 2L O2 VIA NC.
--- NOTE | 2018-09-15 00:55 | NUR ---
PT RESTING IN A POSITION OF COMFORT WITH EYES CLOSED, RESP EVEN AND UNLABORED, NO ACUTE DISTRESS NOTED.
[2018-09-15 01:21] LABS: MAGNESIUM 2.1 mg/dL (1.8-2.4); PHOSPHOROUS 2.8 mg/dL (2.5-4.9)
[2018-09-15 01:24] LABS: CHOLESTEROL/HDL RATIO 2.8
--- NOTE | 2018-09-15 01:55 | NUR ---
REPORT CALLED TO VERN HERZOG TO ASSUME PT CARE.
--- NOTE | 2018-09-15 02:00 | NUR ---
PT TRANSFERRED TO 243B BY NIKKIE BY MYSELF AND IDRIS HERZOG. PT ON TABLE GAMES MANAGER AND 2L O2 VIA NC. PT AOX4, RESP EVEN AND UNLABORED, NO ACUTE DISTRESS NOTED. PT ACCEPTED BY ALIS HERZOG TO ASSUME PT CARE. PT ASSISTED FROM [facility] TO BED WITHOUT INCIDENT.
--- NOTE | 2018-09-15 02:22 | NUR ---
PT RECIEVED FROM ED. NO S/S OF DISTRESS AT THIS TIME. PT ORIENTED TO ROOM AND SURROUNDINDS. CALL LIGHT WITHIN REACH. BED IN LOWEST POSITION. SIDE RAILS UP X2. WILL CONTINUE TO MONITOR.
--- NOTE | 2018-09-15 04:15 | NUR ---
PT RESTING IN BED. NO S/S OF ACUTE DISTRESS AT THIS TIME. CALL LIGHT WITHIN REACH. BED IN LOWEST POSITION. SIDE RAILS UP X2. WILL CONTINUE TO MONITOR.
[2018-09-15 06:46] LABS: CALCIUM 8.5 mg/dL (8.5-10.1); CARBON DIOXIDE 27.2 mmol/L (21-32); CHLORIDE SERUM 107 mmol/L (98-107); GLUCOSE SERUM 146 mg/dL (74-106); MAGNESIUM 2.1 mg/dL (1.8-2.4); PHOSPHOROUS 3.2 mg/dL (2.5-4.9); POTASSIUM SERUM 4.5 mmol/L (3.5-5.1); SODIUM SERUM 142 mmol/L (136-145)
[2018-09-15 07:45] LABS: PLATELET COUNT 162 x10^3mcL (130-400); RED CELL DISTRIBUTION WIDTH 13.4 % (11.5-14.5)
[2018-09-15 07:48] LABS: BASOPHIL % 0 % (0-2)
--- NOTE | 2018-09-15 07:52 | NUR ---
AT 0715 - RECEIVED PATIENT FROM NIGHT NURSE. SLEEPING. RESPIRATIONS REGULAR. MONITOR SHOWING SINUS RHYTHM; RATE 72. IV INFUSING NS AT 80 ML/HR. CONTINUING TO MONITOR.
--- NOTE | 2018-09-15 08:19 | NUR ---
PATIENT IS NOW AWAKE, ALERT AND ORIENTED. SITTING ON SIDE OF BED. BREATHING TREATMENT IN PROGRESS. PATIENT HAS COARSE BREATH SOUNDS ON AUSCULTATION. VOIDING YELLOW URINE IN URINAL.
--- NOTE | 2018-09-15 10:09 | NUR ---
AMBULATED TO BATHROOM AND BACK TO BED. AMBULATING WITH LITTLE ASSISTANCE.
--- NOTE | 2018-09-15 14:07 | NUR ---
PATIETN EXPECTORATING SMALL AMOUNTS OF WHITE SPUTUM. HAS BEEN PROVIDED WITH SPECIMEN CONTAINER FOR SPUTUM COLLECTION - INSUFFICENT AMOUNT AT THIS TIME.
--- NOTE | 2018-09-15 19:03 | NUR ---
IV IN LAC LEAKING. IV CATHETER REMOVED INTACT AND IV RESITED IN LFA. IV INFUSING NS AT 80ML/HR. MONITOR SHOWING SINUS RHYTHM; RATE 80'S. NO C/O PAIN. RESPIRATIONS REGULAR. USE OF INSENTIVE SPIROMETER ENCOURAGED. VSS AND WNL. AMBULATES O BATHROOM FOR TOIELT NEEDS. ALSO USES URINAL. GOOD URINE OUTPUT. WILL ENDORSE CARE TO NIGHT NURSE.
--- NOTE | 2018-09-15 20:00 | NUR ---
RECEIVED PT SITTING UP IN BED AWAKE, ALERT, ORIENTED X4. LUNG SOUNDS CRACKLES TO RIGHT SIDE NOTED. PT ON 2L O2 VIA N/C. TELE 17 SHOWS NSR. NO CHEST PAIN NOTED. BS ACTIVE IN ALL FOUR QUADS. ABD IS OBESE. VOIDING FREELY WITH URINAL. NS AT 80ML/HR TO LFA. SHIFT ASSESSMENT COMPLETED. CALL LIGHT WITHIN REACH. BED IS IN LOWEST POSITION. WILL CONTINUE TO MONITOR CLOSELY.
[2018-09-16 05:19] VITALS: BP 125/63
--- NOTE | 2018-09-16 06:50 | NUR ---
IV TO LFA INFILTRATED. WARM COMPRESS APPLIED. NEW IV INSERTED TO RFA. IVF ONGOING. CALL LIGHT WITHIN REACH. BED IS IN LOWEST POSITION. WILL ENDORSE TO INCOMING SHIFT.
[2018-09-16 07:02] LABS: CALCIUM 8.2 mg/dL (8.5-10.1); CARBON DIOXIDE 26.4 mmol/L (21-32); CHLORIDE SERUM 102 mmol/L (98-107); CREATININE SERUM 1.1 mg/dL (0.7-1.3); GLUCOSE SERUM 156 mg/dL (74-106); MAGNESIUM 2.2 mg/dL (1.8-2.4); PHOSPHOROUS 3.7 mg/dL (2.5-4.9); POTASSIUM SERUM 4.3 mmol/L (3.5-5.1); SODIUM SERUM 135 mmol/L (136-145)
[2018-09-16 07:30] LABS: PLATELET COUNT 193 x10^3mcL (130-400); RED CELL DISTRIBUTION WIDTH 13.2 % (11.5-14.5)
[2018-09-16 07:34] LABS: BASOPHIL % 0 % (0-2)
--- NOTE | 2018-09-16 08:02 | NUR ---
RECEIVED PT FROM NIGHT NURSE. PT IS LAYING DOWN IN BED. RESPIRATIONS ARE EVEN AND UNLABORED ON 2L NC. PT LOOKS TO BE IN NO ACUTE DISTRESS AT THIS TIME. IV FLUIDS INFUSING TO RIGHT FOREARM. BED IN LOWEST POSITION. HOB ELEVATED. CALL LIGHT WITHIN REACH. WILL CONTINUE TO MONTIOR.
[2018-09-16 08:49] VITALS: BP 111/70
--- NOTE | 2018-09-16 10:19 | NUR ---
Nutrition Note Nursing trigger received for "Unable to ingest diet for age and TPN/TF" on 09/15/18. Pt. admitted with CP per H and P documentations and is on a PO diet. Documented PO diet is excellent with PO 100% x 3 meals. Pt. does not meet high risk criteria and will be assessed as low risk with initial assessment due 09/22/18.
[2018-09-16 12:48] VITALS: BP 107/57
[2018-09-16 16:48] VITALS: BP 95/59
--- NOTE | 2018-09-16 17:20 | NUR ---
PT SITTING UP AT BEDSIDE. RESPIRATIONS ARE EVEN AND UNLABORED ON 2L NC. PT LOOKS TO BE IN NO ACUTE DISTRESS AT THIS TIME. PT IS COMPLAINING OF EPIGASTRIC PAIN AND SAYS THAT THIS IS NORMAL AT HOME AND NORMALLY TAKES A MEDICATION EVERY DAY TO HELP WITH IT BUT CANNOT REMEMBER THE NAME OF THE MEDICATION. A MEDICATON IS CURRENTLY ORDERED. DR. GOLD PAGED. CALL LIGHT WITHIN REACH. HOB ELEVATED. WILL CONTINUE TO MONTIOR.
--- NOTE | 2018-09-16 18:10 | NUR ---
TITRATED O2 TO RA. NO RESP DISTRESS NOTED. NOTIFIED NURSE CHRISTOPHER. WILL CONT. TO MONITOR
--- NOTE | 2018-09-16 19:20 | NUR ---
REC'D PT FROM DAY NURSE. FAMILY AT BEDSIDE. PT SITTING AT THE SIDE OF THE BED. TAMAZIGHT AND PORTUGESE SPEAKING. AAOX4, SPEECH CLEAR, FOLLOWS COMMANDS. TELE 17. DENIES CP, DIZZINESS, OR PALPITATIONS. DENIES RESP DISTRESS OR SOB. BREATHING EVEN/UNLABORED ON RA, SPO2 95%. ABD FIRM DISTENDED. C/O DISCOMFORT FROM GASTRIC REFLUX. DENIES ABD PAIN, TENDERNESS, OR N/V. VOIDING FREELY. MILD GEN WEAKNESS. USES CANE AT HOME. UP WITH ASSIST. SKIN INTACT. PITTING EDEMA TO BLE. IV TO RFA PATENT AND INFUSING. SITE WNL. CALL LIGHT WITHIN REACH, BED AT LOWEST POSITION, BED ALARM ON. WILL CONTINUE TO MONITOR.
--- NOTE | 2018-09-16 20:08 | NUR ---
DR. PISANO MADE AWARE OF PT'S COMPLAINTS OF GASTRIC REFLUX. TAKES DEXLANSOPRAZOLE AT HOME. PT AND FAMILY OK WITH TAKING OMEPRAZOLE SUBSTITUTE.
[2018-09-16 21:39] VITALS: BP 121/60
--- NOTE | 2018-09-17 00:09 | NUR ---
PT RESTING IN BED WITH EYES CLOSED. LAYING ON L SIDE. NO SIGNS OF DISTRESS NOTED. BREATHING EVEN/UNLABORED ON RA. CALL LIGHT WITHIN REACH, BED AT LOWEST POSITION, BED ALARM ON. WILL CONTINUE TO MONITOR.
--- NOTE | 2018-09-17 04:23 | NUR ---
SPOKE TO DR. FRANKLIN. MADE AWARE PT WAS POSITIVE FOR INFLUENZA A ON 09/08/18 AND HAS NOT BEEN RESWABBED. PT HAS PRODUCTIVE COUGH. RESIDENT STATED RESWAB NOT INDICATED AT THIS TIME PT DOES NOT HAVE ANY OTHER SYMPTOMS OF FLU SUCH BODY ACHES, AND COUGH LIKELY D/T PNA.
[2018-09-17 05:27] VITALS: BP 133/68
[2018-09-17 06:52] LABS: PLATELET COUNT 194 x10^3mcL (130-400); RED CELL DISTRIBUTION WIDTH 13.6 % (11.5-14.5)
[2018-09-17 07:20] LABS: CALCIUM 8.2 mg/dL (8.5-10.1); CARBON DIOXIDE 28.8 mmol/L (21-32); CHLORIDE SERUM 105 mmol/L (98-107); GLUCOSE SERUM 148 mg/dL (74-106); MAGNESIUM 2.1 mg/dL (1.8-2.4); PHOSPHOROUS 3.9 mg/dL (2.5-4.9); POTASSIUM SERUM 4.6 mmol/L (3.5-5.1); SODIUM SERUM 140 mmol/L (136-145)
--- NOTE | 2018-09-17 07:31 | NUR ---
RECIEVED PT FROM NIGHT NURSE. IV SITE TO THE LEFT FOREARM IS PATENT WITH NO SIGNS OF REDNESS OR SWELLING. IV FLUIDS INFUSING. PT LOOKS TO BE IN NO ACUTE DISTRESS AT THIS TIME. WILL CONTINUE TO MONTIOR.
[2018-09-17 07:39] LABS: BASOPHIL % 0 % (0-2)
[2018-09-17 08:00] VITALS: BP 112/58
--- NOTE | 2018-09-17 12:45 | NUR ---
PT IS SITTIG UP AT THE EDGE OF THE BED EATING LUNCH. RESPIRATIONS ARE EVEN AND UNLABORED ON ROOM AIR. PT LOOKS TO BE IN NO SIGNS OF ACUTE DISTRESS. PT DENIES ANY PAIN AT THIS TIME. CALL LIGHT WITHIN REACH. BED IN LOWEST POSITION. WILL CONTINUE TO MONITOR.
[2018-09-17 13:26] VITALS: BP 96/47
--- NOTE | 2018-09-17 15:34 | NUR ---
PT IS LAYING DOWN IN BED WITH HOB UP. RESPIRATIONS ARE EVEN AND UNLABORED ON ROOM AIR. PT LOOKS TO BE IN NO SIGNS OF ACUTE DISTRESS AT THIS TIME. PT DENIES ANY PAIN AT THIS TIME. BED IN LOWEST POSITION. CALL LIGHT WITHIN REACH. WILL CONTINUE TO MONTIOR.
[2018-09-17 16:50] VITALS: BP 111/56
--- NOTE | 2018-09-17 18:42 | NUR ---
PT IS SITTING UP ON THE SIDE OF THE BED. PT LOOKS TO BE IN NO ACUTE DISTRESS AT THIS TIME. RESPIRATIONS ARE EVEN AND UNLABORED. PT DENIES ANY PAIN AT THIS TIME. IV LOOKS PATENT WITH NO SIGNS OF REDNESS OR SWELLING, IV FLUIDS INFUSING. BED IN LOWEST POSITION. CALL LIGHT WITHIN REACH. WILL ENDORSE TO ONCOMING SHIFT.
--- NOTE | 2018-09-17 19:22 | NUR ---
RECEIVED PT FROM DAY SHIFT RN. ARMENIAN SPEAKING. AAO. TELE #17 SHOWING SINUS WITH PAC'S, DENIES CP. DENIES SOB, RHONCHI NOTED BILATERALLY, NON-PRODUCTIVE COUGH NOTED. ABD SOFT/DISTENDED, BS ACTIVE X4 QUADS, DENIES N/V. PULSES PALPABLE, +1 PITTING EDEMA NOTED TO BLE. IV SITE CDI, NO S/S REDNESS OR SWELLING. CALL LIGHT WTHIN REACH.
--- NOTE | 2018-09-17 20:36 | NUR ---
PT C/O ACID REFLUX AFTER EATING, WILL NOTIFY DR. BAIRD.
[2018-09-17 20:53] VITALS: BP 146/69
--- NOTE | 2018-09-18 00:36 | NUR ---
PT RESTING WITH EYES CLOSED. CHEST RISE/FALL EQUAL. NO SIGNS OF PAIN NOTED. CALL LIGHT WITHIN REACH. WILL CONTINUE TO MONITOR.
[2018-09-18 05:14] VITALS: BP 108/46
[2018-09-18 06:28] LABS: PLATELET COUNT 189 x10^3mcL (130-400); RED CELL DISTRIBUTION WIDTH 13.4 % (11.5-14.5)
--- NOTE | 2018-09-18 06:29 | NUR ---
PT HAD RESTFUL NIGHT. DR. GOLD AT BEDSIDE. NO S/S ACUTE DISTRESS. PT STILL HAS NON-PRODUCTIVE COUGH. DENIES PAIN. NO CHANGES OVERNIGHT. ALL NEEDS MET AND ATTENDED TO. CALL LIGHT WITHIN REACH. WILL ENDORSE CARE TO ONCOMING SHIFT NURSE.
[2018-09-18 06:31] LABS: CALCIUM 8.2 mg/dL (8.5-10.1); CARBON DIOXIDE 29.6 mmol/L (21-32); CHLORIDE SERUM 104 mmol/L (98-107); CREATININE SERUM 1.1 mg/dL (0.7-1.3); GLUCOSE SERUM 140 mg/dL (74-106); MAGNESIUM 2.3 mg/dL (1.8-2.4); PHOSPHOROUS 3.1 mg/dL (2.5-4.9); POTASSIUM SERUM 4.3 mmol/L (3.5-5.1); SODIUM SERUM 136 mmol/L (136-145)
[2018-09-18 06:53] LABS: BASOPHIL % 0 % (0-2)
--- NOTE | 2018-09-18 07:30 | NUR ---
RECIEVED PT SLEEPING IN BED, SIDE LYING WITH HOB ELEVATED. NO ACUTE DISTRESS NOTED AT THIS TIME. NO REDNESS OR SWELLING AT IV SITE, INFUSING WELL. BED IN LOWEST POSITION WITH CALL LIGHT WITHIN REACH. WILL CONTINUE TO MONITOR.
[2018-09-18 10:22] VITALS: BP 102/42
--- NOTE | 2018-09-18 13:45 | NUR ---
PT SITTING UPRIGHT AT EDGE OF BED. DENIES CHEST PAIN AT THIS TIME. WITH PRODUCTIVE COUGH PRODUCING YELLOW PHLEGM. STATED COUGHS ARE GIVING HIM A HEADACHE AND REQUESTED FOR COUGH RELIEF MEDICATION. MEDICATED ORDERED. IV LOCKED ORDERED, NO REDNESS OR SWELLING AT SITE. BED IN LOWEST POSTION AND CALL LIGHT WITHIN REACH. WILL CONTINUER MONITOR.
--- NOTE | 2018-09-18 17:45 | NUR ---
PT SITTING ON EDGE OF BED. NO ACUTE DISTRESS AT THIS TIME. DENIES CHEST PAIN. REPORTED RELIEF IN HEADACHE CAUSED FROM COUGHING. NO REDNESS OR SWELLING AT IV SITE. BED IN LOWEST POSITION WITH CALL LIGHT WITHIN REACH. WILL ENDORSE TO ONCOMING NURSE.
[2018-09-18 18:22] VITALS: BP 113/53
--- NOTE | 2018-09-18 19:34 | NUR ---
RECEIVED PT FROM DAY SHIFT RN. TORRES. TELE #17 SHOWING NSR, DENIES CP. BREATHING E/U, SOB WITH EXCERTION, RHONCHI NOTED BILATERALLY, NON-PRODUCTIVE COUGH NOTED. PT DENIES PAIN. ABD FIRM/SOFT, BS ACTIVE X4 QUADS, DENIES N/V. PULSES PALPABLE, +1 PITTING EDEMA TO BLE. IV SITE SALINE-LOCKED, CDI. CALL LIGHT WITHIN REACH. WILL CONTINUE TO MONITOR.
[2018-09-18 21:17] VITALS: BP 147/80
--- NOTE | 2018-09-19 00:06 | NUR ---
PT RESTING IN BED WITH EYES CLOSED. CHEST RISE/FALL SYMMETRIC. NO S/S ACUTE DISTRESS. CALL LIGHT WITHIN REACH. WILL CONTINUE TO MONITOR.
[2018-09-19 05:36] VITALS: BP 120/70
[2018-09-19 06:11] LABS: PLATELET COUNT 178 x10^3mcL (130-400); RED CELL DISTRIBUTION WIDTH 13.5 % (11.5-14.5)
--- NOTE | 2018-09-19 06:21 | NUR ---
PT HAD RESTFUL NIGHT NO S/S ACUTE DISTRESS. PT STILL VERY CONGESTED WITH NON-PRODUCTIVE COUGH. DENIES PAIN. NO CHANGES OVERNIGHT. ALL NEEDS MET AND ATTENDED TO. CALL LIGHT WITHIN REACH. WILL ENDORSE CARE TO ONCOMING SHIFT NURSE.
[2018-09-19 06:32] LABS: CARBON DIOXIDE 31.4 mmol/L (21-32); CHLORIDE SERUM 104 mmol/L (98-107); CREATININE SERUM 1.1 mg/dL (0.7-1.3); GLUCOSE SERUM 129 mg/dL (74-106); MAGNESIUM 2.2 mg/dL (1.8-2.4); PHOSPHOROUS 3.4 mg/dL (2.5-4.9); POTASSIUM SERUM 4.2 mmol/L (3.5-5.1); SODIUM SERUM 140 mmol/L (136-145)
[2018-09-19 06:38] LABS: BASOPHIL % 0 % (0-2)
--- NOTE | 2018-09-19 07:10 | NUR ---
BEDSIDE REPORT GIVEN TO MINO IRVIN. ALL QUESTIONS AND CONCERNS ADDRESSED.
--- NOTE | 2018-09-19 07:13 | NUR ---
RECEIVED PT FROM SHIFT NURSE ASLEEP BUT AROUSABLE. APPEARS IN NO ACUTE DISTRESS. RESP EVEN AND UNLABORED ON RA. IV INTACT AND PATENT. FALL PRECAUTIONS IN PLACE. BED IN LOW POSITION. CALL LIGHT WITHIN REACH. WILL CONTINUE TO MONITOR.
[2018-09-19 09:00] VITALS: BP 120/44
--- NOTE | 2018-09-19 10:10 | NUR ---
PT C/O OF IV LEAKING. REMOVED IV WITH CATH INTACT.
--- NOTE | 2018-09-19 10:23 | NUR ---
STARTED NEW IV ON RFA. IV INTACT AND PATENT,.
--- NOTE | 2018-09-19 11:05 | NUR ---
PT SITTING IN CHAIR COMFORTABLY. RESP EVEN AND UNLABORED ON RA. CALL LIGHT WITHIN REACH. WILL CONTINUE TO MONITOR.
[2018-09-19 12:15] VITALS: BP 114/61
--- NOTE | 2018-09-19 14:06 | NUR ---
PT C/O OF PERSISTENT COUGH. GAVE MUCINEX ORDERED. WILL CONTINUE TO MONITOR.
[2018-09-19 18:00] VITALS: BP 122/58
--- NOTE | 2018-09-19 18:26 | NUR ---
PT SITTING ON CHAIR EATING DINNER. NO ACUTE DISTRESS NOTED. DENIES SOB. HEPLOCK PATENT. FAMILY AT BEDSIDE. BED IN LOW POSITION. CALL LIGHT WITHIN REACH. WILL BE ENDORSED.
--- NOTE | 2018-09-19 19:30 | NUR ---
RECIEVED PATIENT AT START OF SHIFT AWAKE AND ORIENTED. NO COMPLAINT OF PAIN. NO SOB NOTED ON RA. BREATHS ARE SHALLOW AND RHONCHI ARE HEARD BILATERALLY. ABDOMEN IS DISTENDED ABD FIRM, BUT PATIENT DENIES PAIN. BS ACTIVE. +1 EDEMA NOTED TO BLE. IV SALINE LOCKED TO RFA. PATIENT IS SITTING IN CHAIR, SON IS AT BEDSIDE. USE OF CALL LIGHT REINFORCED. BED LOCKED AND IN LOWEST POSITION. CALL LIGHT AND BEDISDE TABLE WITHIN REACH. WILL CONTNIE TO MONITOR.
[2018-09-19 20:55] VITALS: BP 154/82
--- NOTE | 2018-09-20 01:41 | NUR ---
PATIENT'S EYES ARE CLOSED. BREATHS EVEN AND REGULAR. WILL CONTINUE TO MONITOR.
[2018-09-20 05:46] VITALS: BP 106/63
[2018-09-20 06:43] LABS: CALCIUM 8.2 mg/dL (8.5-10.1); CARBON DIOXIDE 31.7 mmol/L (21-32); CHLORIDE SERUM 102 mmol/L (98-107); CREATININE SERUM 1.2 mg/dL (0.7-1.3); GLUCOSE SERUM 131 mg/dL (74-106); MAGNESIUM 2.3 mg/dL (1.8-2.4); PHOSPHOROUS 3.7 mg/dL (2.5-4.9); POTASSIUM SERUM 4.5 mmol/L (3.5-5.1); SODIUM SERUM 138 mmol/L (136-145)
--- NOTE | 2018-09-20 06:55 | NUR ---
NO SIGNIFICANT EVENTS THIS SHIFT. WILL ENDORSE CARE TO MORNING NURSE.
--- NOTE | 2018-09-20 07:20 | NUR ---
RECEIVED PT FROM SHIFT NURSE ASLEEP BUT AROUSABLE. NO ACUTE DISTRESS NOTED. RESP EVEN AND UNLABORED ON RA. HEPLOCK PATENT. BED IN LOW POSITION. CALL LIGHT WITHIN REACH. WILL CONTINUE TO MONITOR.
[2018-09-20 07:42] LABS: PLATELET COUNT 174 x10^3mcL (130-400); RED CELL DISTRIBUTION WIDTH 13.5 % (11.5-14.5)
[2018-09-20 07:43] LABS: BASOPHIL % 0 % (0-2)
--- NOTE | 2018-09-20 08:44 | NUR ---
PT C/O OF PERSISTENT COUGH. GAVE PHENERGAN ORDERED. WILL CONTINUE TO MONITOR.
[2018-09-20 08:56] VITALS: BP 109/56
--- NOTE | 2018-09-20 11:33 | NUR ---
PT C/O OF COUGH. GAVE MUCINEX ORDERED. WILL CONTINUE TO MONITOR.
[2018-09-20 12:15] VITALS: BP 109/61
--- NOTE | 2018-09-20 13:39 | NUR ---
PT SITTING CHAIR DRAWING ON NOTEPAD. NO ACUTE DISTRESS NOTED. RESP EVEN AND UNLABORED ON RA. DENIES SOB. CALL LIGHT WITHIN REACH. WILL CONTINUE TO MONITOR.
--- NOTE | 2018-09-20 16:06 | NUR ---
PT ASLEEP BUT AROUSABLE. APPEARS IN NO ACUTE DISTRESS. CALL LIGHT WITHIN REACH. WILL CNOTINUE TO MONITOR.
[2018-09-20 17:00] VITALS: BP 126/66
--- NOTE | 2018-09-20 18:06 | NUR ---
PT SITTING IN CHAIR EATING DINNER. NO ACUTE DISTRESS NOTED. DENIES SOB. CALL LIGHT WITHIN REACH. JESE PATENT. WILL BE ENDORSED.
--- NOTE | 2018-09-20 19:38 | NUR ---
RECEIVE PT SITTING AT THE FOOT PART OF TBHE BED. DENEIS ANY PAIN/DISCOMFORT. ON TELE#17 SHOWS SR AT 78/MIN. RESPIRATION EVEN AND UNLABORED, LUNGS WITH COARSE CRAKLES BITLATERL BASES. ON ROOM AIR, NO SB NOTED. PLACED CALL LIGHT WITHIN REACH, INSTRUCTED TO CALL FOR ANY ASSISTANCE NEEDED AND VERBALIZED UNDERSTANDING.
[2018-09-20 21:00] VITALS: BP 118/63
--- NOTE | 2018-09-20 22:32 | NUR ---
ALL DUE MEDICATIONS GIVEN AND WELL TOLERATED. NO S/S OF APIRATION NOTED.
--- NOTE | 2018-09-21 00:01 | NUR ---
C/O OF ABDOMINAL GAS , MYLICON GIVEN ORDERED. NO NAUSEA/VOMITING NOTED. BED I N LOWETS POSITION.
[2018-09-21 05:02] VITALS: BP 104/74
--- NOTE | 2018-09-21 06:22 | NUR ---
DUE MEDICATIONS GIVEN AND WELL TOLERATED. STILL WITH ON AND OFF ABDOMINAL GAS DISCOMFORT RELEIVED BY MILICON GIVEN ROUTINELY. KEPT CLEAN ANDD RY. ALL NEEDS ATTENDED.
--- NOTE | 2018-09-21 07:11 | NUR ---
RECEIVED PT FROM SHIFT NURSE A/OX4. NO ACUTE DISTRESS NOTED. RESP EVEN AND UNLABORED ON RA. DENIES SOB. DENIES CHEST PAIN OR PRESSURE. HEPLOCK PATENT. BED IN LOW POSITION. CALL LIGHT WITHIN REACH. WILL CONTINUE TO MONITOR.
[2018-09-21 08:07] LABS: BASOPHIL % 0.1 % (0-2); PLATELET COUNT 188 x10^3mcL (130-400); RED CELL DISTRIBUTION WIDTH 12.5 % (11.5-14.5)
[2018-09-21 08:08] LABS: CALCIUM 8.2 mg/dL (8.5-10.1); CARBON DIOXIDE 33.5 mmol/L (21-32); CHLORIDE SERUM 103 mmol/L (98-107); CREATININE SERUM 0.9 mg/dL (0.7-1.3); GLUCOSE SERUM 136 mg/dL (74-106); POTASSIUM SERUM 4.3 mmol/L (3.5-5.1); SODIUM SERUM 139 mmol/L (136-145)
[2018-09-21 09:19] VITALS: BP 111/56
--- NOTE | 2018-09-21 09:30 | NUR ---
PT C/O OF COUGH. GAVE PHENERGAN ORDERED. WILL CONTINUE TO MONITOR.
--- NOTE | 2018-09-21 10:18 | NUR ---
PT SITTING ON CHAIR DRAWING. DENIES CHEST PAIN OR PRESSURE. CALL LIGHT WITHIN REACH. HEPLOCK PATENT. WILL CONTINUE TO MONITOR.
[2018-09-21 12:54] VITALS: BP 136/77
--- NOTE | 2018-09-21 13:05 | NUR ---
PT C/O OF PERSISTENT COUGH. GAVE MUCINEX ORDERED. WILL CONTINUE TO MONITOR.
--- NOTE | 2018-09-21 15:05 | NUR ---
PT RESTING ON CHAIR TALKING WITH FAMILY MEMBERS. NO ACUTE DISTRESS NOTED. CALL LIGHT WITHIN REACH. WILL CONTINUE TO MONITOR.
[2018-09-21 17:23] VITALS: BP 138/81
--- NOTE | 2018-09-21 17:29 | NUR ---
PT C/O OF COUGH. GAVE PHENERGAN ORDERED. WILL CONTINUE TO MONITOR.
--- NOTE | 2018-09-21 18:16 | NUR ---
PT SITTING IN CHAIR EATING DINNER. NO ACUTE DISTRESS NOTED. DENIES CHEST PAIN OR PRESSURE. HEPLOCK PATENT. CALL LIGHT WITHIN REACH. WILL BE ENDORSED.
--- NOTE | 2018-09-21 19:40 | NUR ---
REC'D PT FROM DAY NURSE. PT SITTING ON A CHAIR AT THE SIDE OF THE BED. AAOX4, SPEECH CLEAR, FOLLOWS COMMANDS. TELE 17. DENIES CP, DIZZINESS, OR PALPITATIONS. EDEMA TO BLE. DENIES RESP DISTRESS OR SOB. BREATHING EVEN/UNLABORED ON RA, SPO2 95%. REPORTS COUGH AT TIMES WITH SCANT WHITE SPUTUM. ABD SOFT/ROUND. DENIES ABD PAIN, TENDERNESS, OR N/V. VOIDING FREELY. AMBULATORY. UP WITH MIN ASSIST. USES CANE AT HOME. SKIN INTACT. DENIES PAIN AT THIS TIME. IV TO RFA FLUSHED AND PATENT, SITE WNL. WILL CONTINUE TO MONITOR.
[2018-09-21 20:29] VITALS: BP 128/62
--- NOTE | 2018-09-22 01:08 | NUR ---
PT RESTING IN BED WITH EYES CLOSED. SNORING. LAYING ON L SIDE IN LOW FOWLERS POSITION. BREATHING EVEN/UNLABORED ON RA. CALL LIGHT WITHIN REACH, BED AT LOWEST POSITION. WILL CONTINUE TO MONITOR.
[2018-09-22 05:38] VITALS: BP 111/46
--- NOTE | 2018-09-22 06:24 | NUR ---
PT RESTING IN BED WITH EYES CLOSED. AWAKENS WITH VERBAL STIMULI. BREATHING EVEN/UNLABORED ON RA. NO COMPLAINTS AT THIS TIME. NO SIGNIFICANT CHANGES. CALL LIGHT WITHIN REACH, BED AT LOWEST POSITION. WILL ENDORSE TO DAY NURSE.
[2018-09-22 06:33] LABS: CALCIUM 8.2 mg/dL (8.5-10.1); CHLORIDE SERUM 103 mmol/L (98-107); CREATININE SERUM 1.3 mg/dL (0.7-1.3); GLUCOSE SERUM 129 mg/dL (74-106); SODIUM SERUM 138 mmol/L (136-145)
[2018-09-22 07:14] LABS: BASOPHIL % 0.1 % (0-2); PLATELET COUNT 176 x10^3mcL (130-400); RED CELL DISTRIBUTION WIDTH 12.8 % (11.5-14.5)
--- NOTE | 2018-09-22 07:25 | NUR ---
PHENERGAN GIVEN FOR CONGESTED COUGH. TEA HERZOG AWARE.
--- NOTE | 2018-09-22 08:01 | NUR ---
RECEIVED AWAKE, ALERT AND ORIENTED. SITTING ON A CHAIR. NO ACUTE RESP. DISTRESS NOTED. ON RA SATS 94%. NO SOB NOTED. OCC. PROD. COUGH NOTED. PT MEDICATED WITH PHENERGAN PER NOC SHIFT NURSE.NO C/O PAIN OR DISCOMFORT AT THIS TIME. CALL LIGHT WITHIN REACH. WILL CONTINUE WITH PLAN OF CARE.
[2018-09-22 08:46] VITALS: BP 116/65
--- NOTE | 2018-09-22 11:20 | NUR ---
RESTING IN NO DISTRESS, DENIES ANY DISCOMFORT.
[2018-09-22 12:55] VITALS: BP 111/55
--- NOTE | 2018-09-22 15:20 | NUR ---
Initial Nutrition Assessment Dx: CP PMHx: COPD, CO, Prostate cancer s/p radiation, Hyperlipidemia, GERD PSHx: Appendectomy Labs: (09/22) Na 138, K 5, BG 129H, BUN 37H, Cr 1.3, WBC 8.4, H/H 13.4/41L Meds: [facility] Aspirin, Colace, Desryl, Flomax, Lasix, Lipitor, Mucinex, Oscal, Phenegran, Protonix, Solu-Medrol, Tums, Tylenol, Zofran, Zosyn Diet: Cardiac PO Intake: (09/22-09/20) 85-100%, mostly 100% all meals x 3 days. Ht: 64" (163 cm) Wt: 230# (104.5 kg) BMI: 39.5 (Obese Class II) IBW: 130# %IBW: 177% AJBW: 155# (70.5 kg) UBW: 235# Age: 83 y/o elderly male Food Allergies: NKFA Skin: Intact Carter: 20 Edema: Trace to BLE GI: Last BM x 2 (09/22) Per H&P, pt. admitted with 1 day history of worsening SOB and CP associated with right sided pain, which is worsening through inspirations. Of note, pt. recently admitted with influenza and COPD exacerbation 3 days prior to this admission. KUB abdominal X-Ray conducted on 09/17/18 with findings suggesting mild constipation per provider notes. Otherwise, unremarkable study. Per provider during bed huddle discussion, pt. respiratory function has been worsening and antibiotic regimen will be modified. Pt. endorses excellent appetite without GI distress associated with current diet order. Problem with: No c/o N/V/D/C Problems with: Chewing: N Swallowing: N Current appetite: Excellent Recent wt change: None %wt change: N/A Vitamin/Supplement use: None Special diet at home: Regular Physical activity: None d/t chronic illness and advanced age Education: Notified pt. of Cardiac diet and associated restrictions. Declined further diet education at this time. Estimated Nutritional Needs Based on adjusted body weight 70.5 kg: Energy: 3603-2916 kcal/d (25-27 kcal/kg- geriatric maintenance) Protein: 56-71 g/d (0.8-1.0 g/kg)-maintenance and preservation of lean body mass Fluid: 5510-4666 ml/d (1 ml/kcal-fluid balance) or per doctor Nutrition Diagnosis 1. Obesity class II r/t sedentary lifestyle AEB pt. reports of not participating in maintenance physical activities and measured BMI 39.5. Intervention/RD recommendations 1. Continue cardiac diet as ordered and as tolerated. Monitor/Evaluate Goal: PO intake at least 75% of estimated needs Monitor: PO intake, Labs, GI function, diet tolerance, skin F/U in 7 days as low risk (09/29)
--- NOTE | 2018-09-22 15:22 | NUR ---
Intervention/RD recommendations 1. Continue cardiac diet as ordered and as tolerated.
--- NOTE | 2018-09-22 16:00 | NUR ---
RECEIVED A CALL FROM [employer] THAT PT HAS BEEN ACCEPTED AT [facility]UTE [facility] ROOM # 301A AND PHONE NUMBER FOR REPORT IS [phone]. PENDING EVAL FROM [facility].
[2018-09-22 16:09] VITALS: BP 99/50
--- NOTE | 2018-09-22 17:01 | NUR ---
ATTEMPTED FOR PHYSICAL THERAPY SESSIONS, REQUESTED TO POSTPONE SESSION SECONDARY TO COUGHING AND DISCOMFORT AT THIS TIME.
--- NOTE | 2018-09-22 18:07 | NUR ---
MEDICATED WITH PHENERGAN SYRUP FOR DRY COUGH WITH FAIR RELIEF. NO C/O PAIN OR DISCOMFORT.
--- NOTE | 2018-09-22 19:03 | NUR ---
SITTING ON A CHAIR. NO ACUTE DISTRESS NOTED. NO C/O PAIN OR DISCOMFORT. VS REMAINS WNL. HL PATENT. CALL LIGHT WITHIN REACH. WILL BE ENDORSED TO INCOMING SHIFT.
--- NOTE | 2018-09-22 19:41 | NUR ---
RECEIVED PT FROM DAY SHIFT RN. MELISSA. DENIES HEADACHE/DIZZINESS. TELE #17 SHOWING NSR, DENIES CP. NON-PRODUCTIVE COUGH NOTED, DENIES SOB, LUNG SOUNDS CTA UPPER LOBES WITH DIMINISHED BASES. ABD SOFT/DISTENDED, BS ACTIVE X4 QUADS, DENIES N/V. PULSES PALPABLE, +1 PITTING EDEMA NOTED TO BLE, TRACE EDEMA TO BUE. IV SITES CDI, NO S/S REDNESS OR SWELLING. CALL LIGHT WITHIN REACH. SAFETY MEASURES IN PLACE. WILL CONTINUE TO MONITOR.
[2018-09-22 21:36] VITALS: BP 102/54
--- NOTE | 2018-09-23 00:48 | NUR ---
PT RESTING IN BED WITH EYES CLOSED. BREATHING E/U. NO S/S ACUTE DISTRESS. WILL CONTINUE TO MONITOR.
--- NOTE | 2018-09-23 04:17 | NUR ---
MEDICATED PER EMAR WITH PHENERGAN FOR NON-PRODUCTIVE COUGH.
--- NOTE | 2018-09-23 05:53 | NUR ---
PT HAD RESTFUL NIGHT. DENIES PAIN. NO S/S ACUTE DISTRESS. ALL NEEDS MET AND ATTENDED TO. NO CHANGES OVERNIGHT. IVF INFUSING WELL, IV SITES CDI. CALL LIGHT WITHIN REACH. SAFETY MEASURES IN PLACE. WILL CONTINUE TO MONITOR.
[2018-09-23 05:59] VITALS: BP 118/48
[2018-09-23 06:14] LABS: PLATELET COUNT 174 x10^3mcL (130-400); RED CELL DISTRIBUTION WIDTH 13.8 % (11.5-14.5)
[2018-09-23 06:20] LABS: CARBON DIOXIDE 32.2 mmol/L (21-32); CHLORIDE SERUM 103 mmol/L (98-107); CREATININE SERUM 1.3 mg/dL (0.7-1.3); GLUCOSE SERUM 126 mg/dL (74-106); SODIUM SERUM 139 mmol/L (136-145)
[2018-09-23 06:36] LABS: BASOPHIL % 0 % (0-2)
--- NOTE | 2018-09-23 07:20 | NUR ---
RECEIVED PT IN BED A/A/OX4 DENIES FELICIANO. RESP EVEN AND UNLABORED WITH DIMINISHED BS TO BILAT BASES. ON RA WITH CONGESTED COUGH. ON RT PROTOCOL. NSR ON TELE. DENIES ANY CP/PRESSURE AT THIS TIME. NOTED WITH +1 EDEMA TO BLE AND TRACE TO BUE. ABD ROUND, OBESE, NONTENDER WITH ACTIVE BS X4. DENIES ANY N/V AT THIS TIME. VOIDING FREELY. AMBULATORY WITH ASSIST. CALL LIGHT IN REACH NEEDS ATTENDED TO.
[2018-09-23 09:04] VITALS: BP 114/60
[2018-09-23 10:53] VITALS: BP 114/60
[2018-09-23] MEDS ORDERED: XOPENEX1.25 MG/3 NEB (10:58)
[2018-09-23] MEDS ORDERED: PRE20 PO (10:58)
[2018-09-23] MEDS ORDERED: LEVAQUIN750 MG PO (10:58)
[2018-09-23] MEDS ORDERED: AMERINET CHOICE1 PD3 IV (11:17)
[2018-09-23 13:19] VITALS: BP 114/60
--- NOTE | 2018-09-23 13:45 | NUR ---
TRANSPORT HERE TO PICK PT UP. D/C PACKET COMPLETED. PT'S SON HAI AND NOTIFIED THEM THAT PT WAS BEING PICKED UP NOW AND TRANSFER TO [facility] ACUTE ROOM 301A. REPORT CALLED TO GARIMA AT [facility] AT [phone] REPORT GIVEN. MADE AWARE OF TRANSFER ORDERS AND CONT OF IV ATB ZOSYN. NOTIFIED PT WITH 2 IV BOTH INSERTED YESTERDAY. ALL ANSWERS AND CONCERNS ADDRESS. TELE D/C'D. PT LEFT HOSPITAL VIA [facility] WITH ALL PERSONAL BELONGINGS IN HAND FREE OF ANY APPARENT DISTRESS WITH IV TO RT AND LT FOREARMS.
== END 2018-09-23 13:45 | DRG 177 ==
LOC: ED 21:42 → DU 09-15 00:10
PROVIDERS: Emergency Medicine; General Practice; ADMIT Internal Medicine
DX: J69.0 Pneumonitis due to inhalation of food and vomit (principal); J96.01 Acute respiratory failure with hypoxia; E43 Unspecified severe protein-calorie malnutrition; N17.0 Acute kidney failure with tubular necrosis; J44.1 Chronic obstructive pulmonary disease with (acute) exacerbation; E78.00 Pure hypercholesterolemia, unspecified; G89.29 Other chronic pain; M54.9 Dorsalgia, unspecified; I25.2 Old myocardial infarction; E66.9 Obesity, unspecified; Z68.38 Body mass index [BMI] 38.0-38.9, adult
CPT/HCPCS: 36600; 82962; 83880; 94150; 97112-GP; 97116-GP; 97530-GP; J1940; J1956; J2543; J2920; J2930; J7030; J7050; J7613; J7620; J7626; J7633; J7644; Q0092; Q0169

== ENCOUNTER → 2018-12-24 | Outpatient (CLI) | payer OTHER ==
[~2018-12-24] MED LIST changes: +AMERINET CHOICE1 PD3 IV; +PRE20 PO; +XOPENEX1.25 MG/3 NEB
== END | disposition home or self-care (01) ==
LOC: RD 11:14
DX: R07.9 Chest pain, unspecified (principal)